=== PATIENT | male | born 1990 | race Two or more races ===

== ENCOUNTER 2020-06-26 05:31 | Emergency (ER) | payer OTHER ==
[~2020-06-26] VITALS: Ht 165.1 cm; Wt 72.6 kg
[2020-06-26] MEDS ORDERED: ERYTHROMYCIN BASE OPHTH 3.5 GM TUBE ONE (06:46)
[2020-06-26 06:50] VITALS: BP 122/76
--- NOTE | 2020-06-26 06:50 | NUR ---
Patient discharged to home in stable condition. Written and verbal after care instructions given. Patient verbalizes understanding of instruction. Pt ambulated with steady gait. vss. In custody.
[2020-06-26] MEDS ORDERED: ERYTHROMYCIN BASE OPHTH 3.5 GM TUBE OP ONE (07:00)
== END 2020-06-26 07:15 ==
LOC: ER 05:34
DX: S09.8XXA Other specified injuries of head, initial encounter (principal); R51.9 Headache, unspecified; X58.XXXA Exposure to other specified factors, initial encounter; Y93.89 Activity, other specified; Y92.89 Other specified places as the place of occurrence of the external cause; Y99.8 Other external cause status
CPT/HCPCS: 70450-TC; 72125-TC